=== PATIENT | male | born 1970 | race African-American/Black ===

== ENCOUNTER 2023-07-28 11:45 | Emergency (ER) | payer OTHER ==
[~2023-07-28] VITALS: Ht 177.8 cm; Wt 79.4 kg
[2023-07-28 11:58] VITALS: BP_SYST 133; PULSE 100; RESP 17; TEMP 98.5; O2SAT 98
[2023-07-28 12:29] LABS: BASOPHILS % (AUTO) 0.7 % (0.0-2.0); EOSINOPHILS # (AUTO) 0.2 K/uL (0.0-0.4); EOSINOPHILS % (AUTO) 3.3 % (0.0-4.0); HEMATOCRIT 43.1 % (36-54); HEMOGLOBIN 14.8 g/dL (14.0-18.0); LYMPHOCYTES # (AUTO) 1.5 K/uL (1.0-5.5); LYMPHOCYTES % (AUTO) 25.6 % (20.5-51.5); MEAN CORPUSCULAR HEMOGLOBIN 31 pg (27-31); MEAN CORPUSCULAR HGB CONC 34 % (32-36); MEAN CORPUSCULAR VOLUME 89 fL (79.0-98.0); MONOCYTES # (AUTO) 0.6 K/uL (0.0-1.0); MONOCYTES % (AUTO) 10.4 % (1.7-9.3); NEUTROPHILS # (AUTO) 3.5 K/uL (1.8-7.7); PLATELET COUNT (AUTO) 309 K/uL (130-430); RED BLOOD CELL COUNT(AUTO) 4.83 MIL/uL (4.2-6.2); RED CELL DISTRIBUTION WIDTH 14.5 % (9.0-15.0); WHITE BLOOD COUNT (AUTO) 5.9 K/uL (4.8-10.8)
[2023-07-28 12:40] LABS: PROTHROMBIN TIME 10.2 SECS (9.5-12.5)
[2023-07-28 13:14] LABS: BILIRUBIN,URINE NEGATIVE (NEGATIVE); BLOOD, URINE TRACE (NEGATIVE); CLARITY/URINE CLEAR (CLEAR); COLOR,URINE YELLOW (YELLOW); GLUCOSE,URINE NEGATIVE (NEGATIVE); KETONES,URINE NEGATIVE (NEGATIVE); LEUKOCYTE ESTERASE ,URINE TRACE (NEGATIVE); NITRITE, URINE NEGATIVE (NEGATIVE); PH,URINE 6.5 (5.0-8.0); PROTEIN URINE NEGATIVE (NEGATIVE); UROBILINOGEN,URINE 0.2 (0.2-1.0)
[2023-07-28 13:31] LABS: BACTERIA,URINE None Seen /HPF (None Seen); RBC,URINE 0-3 /HPF (0-3); WBC,URINE 0-3 /HPF (0-3)
[2023-07-28 13:31] LABS: ALBUMIN 3.6 g/dL (3.4-4.8); BILIRUBIN,DIRECT 0.1 mg/dL (0.0-0.3); CALCIUM 8.5 mg/dL (8.4-11.0); CREATININE 0.99 mg/dL (0.55-1.30); POTASSIUM 4.2 mmol/L (3.5-5.1); TOTAL BILIRUBIN 0.5 mg/dL (0.0-1.0); TOTAL PROTEIN, SERUM 7.5 g/dL (6.4-8.3)
[2023-07-28] MEDS ORDERED: IBUP-1971 PO (14:13)
== END 2023-07-28 14:20 | disposition home or self-care (01) ==
LOC: SED 11:45
DX: N23 Unspecified renal colic (principal); E27.9 Disorder of adrenal gland, unspecified
CPT/HCPCS: 36415; 80048; 80076; 81000; 81001; 81015; 82150; 83605; 83690; 85025; 85610; 85730; 99284